=== PATIENT | female | born 1995 | race Caucasian/White ===

== ENCOUNTER 2017-06-09 22:10 | Emergency (ER) | payer OTHER ==
[2017-06-09 22:40] LABS: HEMATOCRIT 53.3 % (36.0-48.0); HEMOGLOBIN 17.8 g/dL (12.0-16.0); MEAN CORPUS. HGB CONCENTRATION 33.4 g/dL (32.0-36.0); MEAN CORPUSCULAR HEMOGLOBIN 28.7 pg (29.0-35.0); PLATELET COUNT 317 X 10^3uL (130-440); WHITE BLOOD COUNT 12.2 X 10^3uL (3.9-10.7)
[2017-06-09] MEDS ORDERED: MAGNESIUM SULFATE 1 GM/2 ML VIAL ONE (22:40)
[2017-06-09] MEDS ORDERED: THIAMINE HCL 200 MG/2 ML VIAL ONE (22:40)
[2017-06-09 22:41] LABS: BASOPHILS 1.3 % (0.0-2.0); EOSINOPHILS 1.3 % (0.0-6.0); EOSINOPHILS# 0.2 X 10^3uL (0.0-0.4); LYMPHOCYTES 29.5 % (20.0-40.0); LYMPHOCYTES# 3.6 X 10^3uL (0.8-3.8); MEAN PLATELET VOLUME 7.6 fL (7.4-10.4); MONOCYTES 5.7 % (2.0-10.0); MONOCYTES# 0.7 X 10^3uL (0.2-1.0); NEUTROPHILS 62.2 % (54.0-75.0); NEUTROPHILS# 7.6 X 10^3uL (2.6-6.7)
[2017-06-09] MEDS ORDERED: NORMAL SALINE 1,000 ML IV ONE ×2 (22:41→22:43)
[2017-06-09] MEDS ORDERED: MULTIVITAMINS 10 ML VIAL IV ONE (22:41)
[2017-06-09 22:42] LABS: ALBUMIN 4.8 g/dL (3.5-5.0); ALKALINE PHOSPHATASE 82 U/L (38-126); ALT 42 U/L (9-52); AST 53 U/L (14-36); BASOPHIL# 0.2 X 10^3uL (0.0-0.1); BILIRUBIN, DIRECT 0.3 mg/dL (0.0-0.4); BILIRUBIN, TOTAL 0.5 mg/dL (0.2-1.3); BLOOD UREA NITROGEN 13 mg/dL (7-17); CALCIUM 9.5 mg/dL (8.4-10.2); CHLORIDE 110 mmol/L (98-107); EST GLOMERULAR FILTRATION RATE > 60 mL/min; GLUCOSE 71 mg/dL (70-100); LIPASE 163 U/L (23-300); MAGNESIUM 2.1 mg/dL (1.6-2.3); POTASSIUM 4.1 mmol/L (3.5-5.1); SODIUM 147 mmol/L (137-145); TOTAL PROTEIN 8.3 g/dL (6.3-8.2)
[2017-06-09 22:43] LABS: SALICYLATE < 1.0 mg/dL (<20.0)
[2017-06-09] MEDS ORDERED: LORazepam 1 MG TABLET ONE (22:43)
[2017-06-09 23:56] LABS: ETHYL ALCOHOL 343 mg/dL (<10)
--- NOTE | 2017-06-10 01:12 | ER NURSING DOCUMENTATION ---
Nurse's Notes [facility] Name:Radha Zaldivar Age:21 yrs Sex:Female :1995 Arrival Date:06/09/2017 Time:22:10 BedTrauma-B Private MD: Diagnosis:Alcohol Intoxication, Dependence Acute;Suicide Attempt;Tylenol Overdose-: Normal Level;Dehydration Presentation: 06/09 22:16 Acuity: JE 2 rh 22:38 Presenting complaint: Patient states: pt arrived to [place] with a BA at 307. pt states bw2 she took tylenol and gabioitin with the intention of harming herserf. pt arrived in ER screaming and threatening to punch staff. Transition of care: [place]. 22:38 Method Of Arrival: Wheelchair bw2 Triage Assessment: 22:41 General: Behavior is agitated, anxious, crying, inappropriate for age, combative, bw2 Smells of alcohol. General: Appears in no apparent distress. Pain: Denies pain. Respiratory: No deficits noted. GI: No deficits noted. Historical: - Allergies: Bee venom; - Tetanus: unknown. - Ebola Screening: : Patient negative for fever greater than or equal to 101.5 degrees Fahrenheit, and additional compatible Ebola Virus Disease symptoms. Patient denies exposure to infectious person. Patient denies travel to an Ebola-affected area in the 21 days before illness onset. No symptoms or risks identified at this time. . - Immunization history: Flu Vaccine None. - Social history: Smoking status: Patient uses tobacco products, current every day smoker. Screenin:46 Infectious Disease Risk None. Abuse screen: Denies threats or abuse. Nutritional bw2 screening: No deficits noted. Suicide Risk Assessment: Suicidal Thinking Present - Yes ( 2 points), Past Attempts - Yes (1 point), Family History of Suicide - No (0 points), Credible Suicide Plan - Yes (3 points), Means to Kill Self Available - Yes (3 points), Has Serious Health Problem - No ( 0 points), Lives Alone - No (0 points), Will Contract for Safety -. Assessment: 22:46 See Triage Assessment done by same RN. bw2 23:31 Reassessment: Patient states feeling better. Patient states symptoms have improved. bw2 Vital Signs: 22:41 BP 121 / 85; Pulse 109; Resp 20 S; Temp 98(T); Pulse Ox 96% on R/A; Weight 54.43 kg; bw2 22:41 Height 5 ft. 7 in. (170.18 cm); Pain 0/10; bw2 23:31 BP 116 / 67; Pulse 95; Resp 18; Pulse Ox 94% on R/A; bw2 06/10 01:03 BP 110 / 62; Pulse 95; Resp 18 S; Pulse Ox 95% on R/A; bw2 [place] Coma Score: 06/09 22:31 Eye Response: spontaneous(4). Verbal Response: oriented(5). Motor Response: obeys cd commands(6). Total: 15. ED Course: 22:10 Patient arrived in ED. em3 22:16 Triage completed. rh 22:21 Moy Banuelos MD is Attending Physician. cd 22:24 Kristen Thomas is Primary Nurse. bw2 22:47 Inserted peripheral IV: 18 gauge in left forearm antecubital area and blood collected. bw2 22:47 Valuables Remains with patient Patient has correct armband on for positive bw2 identification. Placed in gown. Bed in low position. Side rails up X2. classroom monitor on. Pulse ox on. NIBP on. 23:34 No apparent distress. Resting quietly. Patient requests liquids. bw2 Administered Medications: 22:23 CANCELLED (Physician Discretion): NS 0.9% 1000 ml IV at bolus once cd 22:37 Drug: Ativan 1 mg; Route: PO; bw2 23:32 Follow up: Response: Anxiety decreased bw2 22:38 Drug: Banana Bag - (NS 0.9% 1000 ml, folic acid 600 mcg, Thiamine 100 mg, Multivitamin bw2 10 ml, Magnesium Sulfate 1 grams); Route: IV; Rate: calculated rate; Site: left antecubital; 23:32 Follow up: IV Status: Completed infusion bw2 22:38 Drug: NS 0.9% 1000 ml; Route: IV; Rate: 150 ml/hr; Site: left antecubital; bw2 23:32 Follow up: IV Status: Completed infusion bw2 Outcome: 06/10 00:58 ER care complete, transfer ordered by . cd 01:03 [facility] Acceptance Time: June 10, 2017 at 00:51 Patient's face sheet was faxed to accepting facility. Face Sheet included patient's name, address, age, gender, contact information and insurance information. Patient will be transported by: [facility] ground. Report called to: ED RN Nurse and Physician Charting and Notes were sent to Accepting Facility. All tests and/or procedures with results, if applicable, were sent to accepting facility. 01:03 Condition: stable 01:05 Instructed on need for transfer bw2 01:11 Report given to Jabari bw2 01:12 Patient left the ED. bw2 Signatures: Moy Banuelos MD MD cd Meiklejohn, Eric em3 Hofsess, Rachel rh Wisely, Beth bw2
--- NOTE | 2017-06-10 01:12 | ER PHYSICIAN DOCUMENTATION ---
Physician Documentation [facility] Name:Radha Zaldivar Age:21 yrs Sex:Female :1995 Arrival Date:06/09/2017 Time:22:10 BedTrauma-B Private MD: Moy Barrios Disposition: 06/10/17 00:58 Transfer ordered to [facility]. Diagnosis are Alcohol Intoxication, Dependence Acute, Suicide Attempt, Tylenol Overdose - : Normal Level, Dehydration. - Reason for transfer: Specialty. - Accepting physician is Dr. Gomes, [facility] ED Physician. - Condition is Fair. - Problem is new. - Symptoms have improved. COBRA Form completed? Transfer - Mode of Transportation Ambulance HPI: 06/09 22:25 This 21 yrs old Female presents to ER with complaints of ETOH Abuse and cd Suicide Attempt by Overdose of Acetaminophen. 22:25 The patient presents to the emergency department after a known overdose, that was cd intentional. Context: Method: the patient has a confirmed or suspected ingestion, of acetaminophen, Time: today, 7.5 hour(s) ago, at 15:00, Extent: the strength of the pills/capsules is 500 mg(s), the patient had a total ingestion of approximately 4000 mg(s), it is unknown what amount the patient ingested, the OD/poisoning occurred at at home, and was witnessed by a friend, Psychiatric history: the patient has a known psychiatric disorder, depression, Alcoholism, Previous OD/poisoning history: It is unknown if the patient has had similar previous episodes. Associated signs and symptoms: Pertinent positives: anxiety, depression, Suicide Ideation, Pertinent negatives: auditory hallucinations, diaphoresis, diarrhea, dizziness, loss of consciousness, visual hallucinations, vomiting. Severity of symptoms: At their worst the symptoms were moderate in the emergency department the symptoms are unchanged. It is unknown whether or not the patient has had similar symptoms in the past. Historical: - Allergies: Bee venom; - Tetanus: unknown. - Ebola Screening: : Patient negative for fever greater than or equal to 101.5 degrees Fahrenheit, and additional compatible Ebola Virus Disease symptoms. Patient denies exposure to infectious person. Patient denies travel to an Ebola-affected area in the 21 days before illness onset. No symptoms or risks identified at this time. . - Immunization history: Flu Vaccine None. - Social history: Smoking status: Patient uses tobacco products, current every day smoker. ROS: 22:30 Constitutional: Positive for poor PO intake, Negative for chills, fever. cd 22:30 Cardiovascular: Negative for chest pain, palpitations. 22:30 Respiratory: Negative for cough, shortness of breath. 22:30 Abdomen/GI: Positive for anorexia, Negative for abdominal pain, nausea, vomiting, diarrhea. 22:30 Neuro: Positive for altered mental status, Negative for headache, loss of consciousness, seizure activity, speech changes, syncope, weakness. 22:30 Psych: Positive for anxiety, depression, alcohol dependence, suicidal ideation, Negative for auditory hallucinations, visual hallucinations, homicidal ideation. 22:30 All other systems are negative. Exam: 22:31 Head/Face: Normocephalic, atraumatic. cd 22:31 ENT: Nares patent. No nasal discharge, no septal abnormalities noted. Tympanic cd membranes are normal and external auditory canals are clear. Oropharynx with no redness, swelling, or masses, exudates, or evidence of obstruction, uvula midline. Mucous membranes moist. 22:31 Constitutional: The patient appears alert, awake, non-diaphoretic, non-toxic, well developed, well nourished, anxious, in obvious distress, moderately distressed, smells of alcohol. 22:31 Cardiovascular: Rate: normal, Rhythm: regular, Pulses: no pulse deficits are appreciated, Heart sounds: normal. 22:31 Respiratory: the patient does not display signs of respiratory distress, Respirations: normal, no acute changes, Breath sounds: are normal, clear throughout. 22:31 Abdomen/GI: Inspection: abdomen appears normal, Bowel sounds: normal, Palpation: abdomen is soft and non-tender. 22:31 Neuro: Orientation: is normal, to person, place & time. Mentation: lucid, Memory: unable to test, Cranial nerves: CN II- XII are normal as tested, Cerebellar function: unable to test, Motor: moves all fours, Sensation: is normal. 22:31 Psych: Behavior/mood is anxious, uncooperative, suicidal, depressed, angry, Affect is animated, Oriented to person, Patient having thoughts of suicide. Judgement / Insight is impaired. Delusions/hallucinations are not present. Back: No spinal tenderness. No costovertebral tenderness. Full range of motion. Skin: Warm, dry with normal turgor. Normal color with no rashes, no lesions, and no evidence of cellulitis. 22:31 MS/ Extremity: Pulses equal, no cyanosis. Neurovascular intact. Full, normal range cd of motion. Vital Signs: 22:41 BP 121 / 85; Pulse 109; Resp 20 S; Temp 98(T); Pulse Ox 96% on R/A; Weight 54.43 kg; bw2 22:41 Height 5 ft. 7 in. (170.18 cm); Pain 0/10; bw2 23:31 BP 116 / 67; Pulse 95; Resp 18; Pulse Ox 94% on R/A; bw2 06/10 01:03 BP 110 / 62; Pulse 95; Resp 18 S; Pulse Ox 95% on R/A; bw2 [place] Coma Score: 06/09 22:31 Eye Response: spontaneous(4). Verbal Response: oriented(5). Motor Response: obeys cd commands(6). Total: 15. MDM: 22:20 Data interpreted: Pulse oximetry: on room air is 93 %. Interpretation: normal. cd 22:21 Patient medically screened. cd 22:36 Differential diagnosis: Ingestion/exposure to ETOH and Acetaminaphen polypharmacy, cd hypoglycemia, Alcohol Intoxication, Suicidal Ideation, Depression, Anxiety. 22:44 Data reviewed: vital signs, nurses notes, old medical records, and as a result, I will cd *Transfer Patient administer IV fluids, NS bolus, NS maintenence, prescribe sedation medication, lorazepam. 22:45 Counseling: I had a detailed discussion with the patient and/or guardian regarding: the cd historical points, exam findings, and any diagnostic results supporting the discharge/admit diagnosis, the need to transfer to another facility, for higher level of care, [facility] does not immediately have the required specialist. 06/10 00:55 Physician consultation: Dr. Eliseo ABARCA was called at 00:45, was contacted at 00:50, cd regarding admission, to [facility] ED, consult, patient's condition, need to come to ED to see patient, and will see patient in ED, shortly, later today, after a discussion of the case, a recommendation for transfer for higher level of care is made. 00:57 Response to treatment: the patient's symptoms have markedly improved after treatment, cd and as a result, I will transfer the patient for Psychiatric Evaluation at [facility] ED. 06/09 22:42 Order name: CBC AUTO DIF, MDIF/RMOR IF IND; Complete Time: 00:31 EDMS 06/09 22:50 Interpretation: Normal Except: WHITE BLOOD COUNT 12.2; HEMOGLOBIN 17.8; HEMATOCRIT cd 53.3; Dehydration. 06/09 22:45 Order name: BASIC METABOLIC PANEL; Complete Time: 00:31 EDMS 06/09 22:50 Interpretation: Normal Except: SODIUM 147; CHLORIDE 110; CARBON DIOXIDE 14; cd Dehydration, Metabolic Acidosis. 06/09 22:45 Order name: MAGNESIUM; Complete Time: 00:31 EDMS 06/09 22:50 Interpretation: Normal. 06/09 22:45 Order name: HEPATIC PANEL; Complete Time: 00:31 EDGA 06/09 22:51 Interpretation: Normal Except: AST 53. 06/09 22:45 Order name: LIPASE; Complete Time: 00:31 EDMS 06/09 22:51 Interpretation: Normal. 06/09 22:45 Order name: SALICYLATE; Complete Time: 00:31 EDGA 06/09 22:51 Interpretation: Normal. 06/09 22:45 Order name: ETHYL ALCOHOL; Complete Time: 00:31 EDMS 06/10 00:30 Interpretation: Abnormal: ETHYL ALCOHOL 343. 06/09 22:45 Order name: ACETAMINOPHEN; Complete Time: 00:31 EDGA 06/09 22:55 Interpretation: Normal. 06/09 23:26 Order name: HCG, SERUM; Complete Time: 00:31 EDGA 06/09 23:28 Interpretation: Normal. 06/09 23:28 Order name: THYROID STIMULATING HORMONE; Complete Time: 00:31 [facility] 06/09 22:22 Order name: Continuous Cardiac Monitoring; Complete Time: 22:35 06/09 22:22 Order name: I & O; Complete Time: 22:35 06/09 22:22 Order name: Iv Saline Lock; Complete Time: 22:35 06/09 22:22 Order name: NPO; Complete Time: 22:35 06/09 22:22 Order name: Pulse Ox Continuous; Complete Time: 22:35 06/09 22:22 Order name: Suicide Precautions; Complete Time: 22:35 cd Dispensed Medications: 06/09 22:23 CANCELLED (Physician Discretion): NS 0.9% 1000 ml IV at bolus once cd 22:37 Drug: Ativan 1 mg; Route: PO; bw2 23:32 Follow up: Response: Anxiety decreased bw2 22:38 Drug: Banana Bag - (NS 0.9% 1000 ml, folic acid 600 mcg, Thiamine 100 mg, Multivitamin bw2 10 ml, Magnesium Sulfate 1 grams); Route: IV; Rate: calculated rate; Site: left antecubital; 23:32 Follow up: IV Status: Completed infusion bw2 22:38 Drug: NS 0.9% 1000 ml; Route: IV; Rate: 150 ml/hr; Site: left antecubital; bw2 23:32 Follow up: IV Status: Completed infusion bw2 Signatures: Moy Banuelos MD MD cd Wisely, Beth [facility]
== END 2017-06-10 01:12 | disposition short-term general hospital (02) ==
LOC: ER 22:10 → EEVIPCON 22:10 → ER 06-10 01:12
DX: T51.0X2A Toxic effect of ethanol, intentional self-harm, initial encounter (principal); T39.1X2A Poisoning by 4-Aminophenol derivatives, intentional self-harm, initial encounter; F41.9 Anxiety disorder, unspecified; F32.9 Major depressive disorder, single episode, unspecified; F10.220 Alcohol dependence with intoxication, uncomplicated; F99 Mental disorder, not otherwise specified; R45.4 Irritability and anger; E86.0 Dehydration; E87.2 Acidosis
CPT/HCPCS: 80048; 80076; 80307; 80320; 80329; 83690; 83735; 84443; 84703; 85025; 96365; 99285; A0425; A0429; J3475; J7030